=== PATIENT | female | born 1955 | race Caucasian/White ===

== ENCOUNTER → 2016-05-06 | Outpatient (CLI) | payer OTHER ==
--- NOTE | 2016-05-06 15:26 | DX ---
Left wrist, 3 views History: Pain. Findings: Osteophytes involving the first metacarpal base, as well as trapezium. There is mild joint space narrowing. Distal radius and ulna demonstrate no fractures or destructive osseous lesions. No d efinite destructive osseous lesions of the scaphoid bones or metacarpals. 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
--- NOTE | 2016-05-06 16:21 | DX ---
Left thumb, 3 views History: Thumb pain. Comparison: None. Findings: No acute fracture or dislocation identified. Left thumb appears intact without fracture, de generative joint disease, or destructive osseous lesion. No dislocation. Mild osteoarthritis first ca rpometacarpal joint with osteophytes, subchondral sclerosis and mild joint space narrowing. Impression: 1. No definite acute fracture. 2. Mild osteoarthritis first carpometacarpal joint.
== END ==
LOC: BMCIMAGING 12:15
PROVIDERS: ATTEND Family Medicine
DX: M19.042 Primary osteoarthritis, left hand (principal); M19.032 Primary osteoarthritis, left wrist

== ENCOUNTER → 2017-05-06 | Outpatient (CLI) | payer OTHER | LOC: FIMAGING 09:44 | PROVIDERS: ATTEND Registered Nurse General Practice | DX: Z12.31 Encounter for screening mammogram for malignant neoplasm of breast (principal); Z13.820 Encounter for screening for osteoporosis; Z78.0 Asymptomatic menopausal state ==

== ENCOUNTER → 2018-09-07 | Outpatient (CLI) | payer OTHER | LOC: FIMAGING 10:26 ==